=== PATIENT | male | born 1995 | race African-American/Black ===

== ENCOUNTER 2017-01-19 14:39 | Emergency (ER) | payer MEDICAID, OTHER ==
[2017-01-19 14:55] VITALS: BP 151/72
[2017-01-19] MEDS ORDERED: Tetan/Diph/Pertus SYR(Tdap)* 0.5 ML SYR(BOOSTRIX) use SYR IM ONE (16:36)
--- NOTE | 2017-01-19 16:38 | ED ---
Laceration/Wound HPI - HPI Summary HPI Summary: 21M presents with hook in right thumb today. has never had a tetanus. was going fishing and lure was in his bag and he reached back and it got caught in his finger. He is right handed. - History of Current Complaint Stated Complaint: HOOK IN HAND Time Seen by Provider: 01/19/17 15:01 Pain Intensity: 7 - Allergy/Home Medications Allergies/Adverse Reactions: Allergies Allergy/AdvReac Type Severity Reaction Status Date / Time No Known Allergies Allergy Verified 01/19/17 16:03 PMH/Surg Hx/FS Hx/Imm Hx Endocrine/Hematology History: Denies: Hx Diabetes Cardiovascular History: Denies: Hx Hypertension, Hx Pacemaker/ICD History: Denies: Hx Renal Disease Sensory History: Denies: Hx Hearing Aid Psychiatric History: Denies: Hx Panic Disorder - Cancer History Cancer Type, Location and Year: brain tumor/cyst (pt unsure) discovered via ct early 2014. Infectious Disease History: No Infectious Disease History: Denies: Traveled Outside the [place] in Last 30 Days - Family History Known Family History: Negative: Cardiac Disease - Social History Alcohol Use: Rare Substance Use Type: Reports: Marijuana Substance Use Comment - Amount & Last Used: today Smoking Status (MU): Light Every Day Tobacco Smoker Review of Systems Negative: Fever Negative: Chest Pain Negative: Shortness Of Breath Positive: Other - lure in right thumb All Other Systems Reviewed And Are Negative: Yes Physical Exam Triage Information Reviewed: Yes Vital Signs On Initial Exam: Initial Vitals Temp Pulse Resp BP Pulse Ox 97.9 F 59 16 151/72 99 01/19/17 14:53 01/19/17 14:53 01/19/17 14:53 01/19/17 14:53 01/19/17 14:53 Vital Signs Reviewed: Yes Appearance: Positive: Well-Appearing Skin: Positive: Warm, Dry, Other - lure stuck in proximal phalanx of right thumb Head/Face: Positive: Normal Head/Face Inspection Eyes: Positive: Normal, Conjunctiva Clear Respiratory/Lung Sounds: Positive: Clear to Auscultation, Breath Sounds Present Cardiovascular: Positive: Normal, RRR Musculoskeletal: Positive: Strength/ROM Intact - right thumb, Other - good pulses, capillary refill < 2 secs Procedures - Procedure Summary Procedure Summary: removal of fishing lure right thumb performed digital block of right thumb pushed cassandra through skin on other side and cut the cassandra and pulled lure back through and successfully removed the lure. Diagnostics - Vital Signs Vital Signs Temp Pulse Resp BP Pulse Ox 01/19/17 16:00 98 F 59 16 151/72 98 01/19/17 14:53 97.9 F 59 16 151/72 99 - Laboratory Lab Statement: Any lab studies that have been ordered have been reviewed, and results considered in the medical decision making process. Laceration Repair Course/Dx - Course Course Of Treatment: 21M presents with lure in right thumb. he is right hand. never had tetanus so gave him one. cleaned area. successfully removed cassandra from lure and was able to pull it back through and remove lure. told to ice area and watch for signs of infection. patient understands and area with plan - Differential Dx Differental Diagnoses: Laceration, Puncture Wound, Other - lure in finger - Clinical Impression Provider Diagnoses: Foreign body finger Discharge - Discharge Plan Condition: Good Disposition: HOME Referrals: David Miles MD [Primary Care Provider] - Additional Instructions: keep area clean Return to ED if develop any signs of infection such as spreading redness, fever , or pus
== END 2017-01-19 17:28 | disposition home or self-care (01) ==
LOC: ED 14:39
DX: S60.351A Superficial foreign body of right thumb, initial encounter (principal); W45.8XXA Other foreign body or object entering through skin, initial encounter; Y93.89 Activity, other specified; Y92.9 Unspecified place or not applicable
CPT/HCPCS: 90715; 99281

== ENCOUNTER 2017-10-04 13:33 | Emergency (ER) | payer SELFPAY ==
--- NOTE | 2017-10-04 16:15 | ED ---
Influenza-Like Illness - HPI Summary HPI Summary: 22M presents with flu like for past weeks. He admits to nausea and diarrhea for past 2 weeks. He admits to occasional cough. He denies any shortness of breath and admits to occasional sinus congestion. He denies any chest pain. He admits to generalized body aches. He states occasional fevers. No one else is sick. He has no medical conditions. He has not tried anything for his symptoms. - History of Current Complaint Chief Complaint: EDFluSymptoms Time Seen by Provider: 10/04/17 16:12 - Allergy/Home Medications Allergies/Adverse Reactions: Allergies Allergy/AdvReac Type Severity Reaction Status Date / Time No Known Allergies Allergy Verified 01/19/17 16:03 PMH/Surg Hx/FS Hx/Imm Hx Endocrine/Hematology History: Denies: Hx Diabetes Cardiovascular History: Denies: Hx Hypertension, Hx Pacemaker/ICD History: Denies: Hx Renal Disease Sensory History: Denies: Hx Hearing Aid Psychiatric History: Denies: Hx Panic Disorder - Cancer History Cancer Type, Location and Year: brain tumor/cyst (pt unsure) discovered via ct early 2014. Infectious Disease History: No Infectious Disease History: Denies: Traveled Outside the [place] in Last 30 Days - Family History Known Family History: Negative: Cardiac Disease - Social History Alcohol Use: Rare Substance Use Type: Reports: Marijuana Substance Use Comment - Amount & Last Used: today Smoking Status (MU): Light Every Day Tobacco Smoker Review of Systems Positive: Fever Negative: Chest Pain Positive: Cough. Negative: Shortness Of Breath Positive: Vomiting, Diarrhea, Nausea. Negative: Abdominal Pain All Other Systems Reviewed And Are Negative: Yes Physical Exam Triage Information Reviewed: Yes Vital Signs On Initial Exam: Initial Vitals Temp Pulse Resp BP Pulse Ox 98.5 F 60 18 145/87 98 10/04/17 13:47 10/04/17 13:47 10/04/17 13:47 10/04/17 13:47 10/04/17 13:47 Vital Signs Reviewed: Yes Appearance: Positive: Well-Appearing Skin: Positive: Warm, Dry Head/Face: Positive: Normal Head/Face Inspection Eyes: Positive: Normal, EOMI, VILMA, Conjunctiva Clear ENT: Positive: Normal ENT inspection, Pharynx normal Respiratory/Lung Sounds: Positive: Clear to Auscultation, Breath Sounds Present Cardiovascular: Positive: Normal, RRR Abdomen Description: Positive: Nontender, Soft Bowel Sounds: Positive: Present Musculoskeletal: Positive: Normal Neurological: Positive: Normal Psychiatric: Positive: Normal Diagnostics - Vital Signs Vital Signs Temp Pulse Resp BP Pulse Ox 10/04/17 15:25 98.2 F 62 17 148/87 98 10/04/17 13:47 98.5 F 60 18 145/87 98 - Laboratory Lab Results: Lab Results 10/04/17 Range/Units 15:44 Influenza A (Rapid) Negative (Negative) Influenza B (Rapid) Negative (Negative) Lab Statement: Any lab studies that have been ordered have been reviewed, and results considered in the medical decision making process. Flu Symptom Course/Dx - Course Course Of Treatment: 22M presents with flu like for past weeks. He admits to nausea and diarrhea for past 2 weeks. He admits to occasional cough. He denies any shortness of breath and admits to occasional sinus congestion. He denies any chest pain. He admits to generalized body aches. He states occasional fevers. No one else is sick. He has no medical conditions. He has not tried anything for his symptoms. On exam lungs clear to auscultation. Pharynx normal. Flu negative. abdomen soft nontender. Will treat with Zofran for nausea. Patient declined any other medication. Patient understands and agrees the plan. - Diagnoses Differential Diagnosis/HQI/PQRI: Positive: Influenza, Pneumonia, Upper Respiratory Infection Provider Diagnoses: Upper respiratory infection Discharge - Discharge Plan Condition: Good Disposition: HOME Prescriptions: Ondansetron ODT TAB* [Zofran 4 MG Odt TAB*] 4 mg PO Q6H PRN #20 tab.odt PRN Reason: Nausea Patient Education Materials: Upper Respiratory Infection (ED) Referrals: Herve Nava MD [Primary Care Provider] - Additional Instructions: Can take Zofran every 6 hours as needed for nausea Drink small amounts of fluid as tolerated When able to eat follow BRAT diet: Bananas, rice, applesauce, toast Take ibuprofen or Tylenol for pain as needed every 6 hours Follow up with primary within 5 days Return to ED if develop fever that does not respond to Tylenol or ibuprofen, severe abdominal pain, or any new or worsening symptoms
[2017-10-04 16:19] VITALS: BP 145/85
== END 2017-10-04 16:17 | disposition home or self-care (01) ==
LOC: ED 13:33
DX: J06.9 Acute upper respiratory infection, unspecified (principal); Z72.0 Tobacco use
CPT/HCPCS: 87502; 99282

== ENCOUNTER 2017-11-07 12:06 | Emergency (ER) | payer SELFPAY ==
[2017-11-07] MEDS ORDERED: Ondansetron INJ* 2 MG/ML VIAL IV ONE (12:16)
[2017-11-07] MEDS ORDERED: NS 0.9% 1000 ML* 1,000 ML IV ONE (12:16)
[2017-11-07 12:51] LABS: ABS Basophils 0 10^3/ul (0-0.2); ABS Eosinophils 0 10^3/ul (0-0.6); ABS Lymphocytes 0.9 10^3/ul (1.0-4.8); ABS Monocytes 0.6 10^3/ul (0-0.8); ABS Neutrophils 6.1 10^3/ul (1.5-7.7); ABS Nucleated RBC 0 10^3/ul; Eosinophil % 0.1 % (0-6); Hematocrit 44 % (42-52); Hemoglobin 14.9 g/dl (14.0-18.0); Lymphocyte % 12.3 % (25-47); Mean Corpuscular HGB Conc 33 g/dl (31-36); Mean Corpuscular Hemoglobin 30 pg (27-31); Mean Corpuscular Volume 90 fL (80-94); Mean Platelet Volume 10 um3 (7.4-10.4); Nucleated Red Blood Cells % 0.1; Platelet Count 171 10^3/ul (150-450); Red Blood Count 4.92 10^6/ul (4.0-5.4); Red Cell Distribution Width 13 % (10.5-15); White Blood Count 7.7 10^3/ul (3.5-10.8)
[2017-11-07 13:06] LABS: EGFR Non-African American 81.1 (>60)
--- NOTE | 2017-11-07 13:15 | ED ---
GI/ HPI - HPI Summary HPI Summary: 22M presents with generalized abdominal pain for the past couple days. He states he has not had a bowel movement for past 5 days. He admits occasional nausea but denies any vomiting. Denies any diarrhea. He has never had this before. He denies any previous abdominal surgeries. Denies any pain with urination and flank pain. Denies any hematuria. He denies any testicular pain. He hasn't tried anything for her symptoms. Nothing makes it better or worse. - History of Current Complaint Chief Complaint: EDNauseaVomitDiarrh Time Seen by Provider: 11/07/17 12:15 Stated Complaint: VOMITING/DIARRHEA Pain Intensity: 0 - Allergy/Home Medications Allergies/Adverse Reactions: Allergies Allergy/AdvReac Type Severity Reaction Status Date / Time No Known Allergies Allergy Verified 11/07/17 12:14 PMH/Surg Hx/FS Hx/Imm Hx Endocrine/Hematology History: Denies: Hx Diabetes Cardiovascular History: Denies: Hx Hypertension, Hx Pacemaker/ICD History: Denies: Hx Renal Disease Sensory History: Denies: Hx Hearing Aid Psychiatric History: Denies: Hx Panic Disorder - Cancer History Cancer Type, Location and Year: brain tumor/cyst (pt unsure) discovered via ct early 2014. Infectious Disease History: No Infectious Disease History: Denies: Traveled Outside the [place] in Last 30 Days - Family History Known Family History: Negative: Cardiac Disease - Social History Alcohol Use: Rare Substance Use Type: Reports: Marijuana Substance Use Comment - Amount & Last Used: today Smoking Status (MU): Light Every Day Tobacco Smoker Review of Systems Negative: Fever Negative: Chest Pain Negative: Shortness Of Breath Positive: Abdominal Pain, Nausea, Other - diarrhea All Other Systems Reviewed And Are Negative: Yes Physical Exam Triage Information Reviewed: Yes Vital Signs On Initial Exam: Initial Vitals Temp Pulse Resp BP Pulse Ox 98.4 F 64 16 165/84 97 11/07/17 12:07 11/07/17 12:07 11/07/17 12:07 11/07/17 12:07 11/07/17 12:07 Vital Signs Reviewed: Yes Appearance: Positive: Well-Appearing Skin: Positive: Warm, Dry Head/Face: Positive: Normal Head/Face Inspection Eyes: Positive: Normal, Conjunctiva Clear Respiratory/Lung Sounds: Positive: Clear to Auscultation, Breath Sounds Present Cardiovascular: Positive: Normal, RRR Abdomen Description: Positive: Nontender, Soft Bowel Sounds: Positive: Present Musculoskeletal: Positive: Normal Neurological: Positive: Normal Psychiatric: Positive: Normal Diagnostics - Vital Signs Vital Signs Temp Pulse Resp BP Pulse Ox 11/07/17 12:07 98.4 F 64 16 165/84 97 - Laboratory Lab Results: Lab Results 11/07/17 11/07/17 Range/Units 12:31 12:31 WBC 7.7 (3.5-10.8) 10^3/ul RBC 4.92 (4.0-5.4) 10^6/ul Hgb 14.9 (14.0-18.0) g/dl Hct 44 (42-52) % MCV 90 (80-94) fL MCH 30 (27-31) pg MCHC 33 (31-36) g/dl RDW 13 (10.5-15) % Plt Count 171 (150-450) 10^3/ul MPV 10 (7.4-10.4) um3 Neut % (Auto) 79.7 (38-83) % Lymph % (Auto) 12.3 L (25-47) % Emmet % (Auto) 7.5 H (0-7) % Eos % (Auto) 0.1 (0-6) % Baso % (Auto) 0.4 (0-2) % Absolute Neuts (auto) 6.1 (1.5-7.7) 10^3/ul Absolute Lymphs (auto) 0.9 L (1.0-4.8) 10^3/ul Absolute Monos (auto) 0.6 (0-0.8) 10^3/ul Absolute Eos (auto) 0 (0-0.6) 10^3/ul Absolute Basos (auto) 0 (0-0.2) 10^3/ul Absolute Nucleated RBC 0 10^3/ul Nucleated RBC % 0.1 Sodium 136 (133-145) mmol/L Potassium 3.8 (3.5-5.0) mmol/L Chloride 103 (101-111) mmol/L Carbon Dioxide 25 (22-32) mmol/L Anion Gap 8 (2-11) mmol/L BUN 12 (6-24) mg/dL Creatinine 1.13 (0.67-1.17) mg/dL Est GFR ( Amer) 104.4 (>60) Est GFR (Non-Af Amer) 81.1 (>60) BUN/Creatinine Ratio 10.6 (8-20) Glucose 101 H (70-100) mg/dL Calcium 9.8 (8.6-10.3) mg/dL Total Bilirubin 0.50 (0.2-1.0) mg/dL AST 27 (13-39) U/L ALT 22 (7-52) U/L Alkaline Phosphatase 72 (34-104) U/L C-React Prot High Sens 4.27 mg/L Total Protein 7.7 (6.4-8.9) g/dL Albumin 4.6 (3.2-5.2) g/dL Globulin 3.1 (2-4) g/dL Albumin/Globulin Ratio 1.5 (1-3) Lipase 14 (11.0-82.0) U/L Result Diagrams: 11/07/17 12:31 11/07/17 12:31 Lab Statement: Any lab studies that have been ordered have been reviewed, and results considered in the medical decision making process. - Radiology abd Xray Interpretation: No Acute Changes - IMPRESSION: NO EVIDENCE FOR OBSTRUCTION. Radiology Interpretation Completed By: Radiologist GIGU Course/Dx - Course Course Of Treatment: 22M presents with generalized abdominal pain for the past couple days. He states he has not had a bowel movement for past 5 days. He admits occasional nausea but denies any vomiting. Denies any diarrhea. He has never had this before. He denies any previous abdominal surgeries. Denies any pain with urination and flank pain. Denies any hematuria. He denies any testicular pain. He hasn't tried anything for her symptoms. Nothing makes it better or worse. on exam abdomen soft nontender. labs wnl. xray normal. urine neg. will treat constipation with miralax and colace. patient understand and agrees with plan. - Diagnoses Differential Diagnoses - Male: Constipation, Gastroenteritis (Bacterial), Urinary Tract Infection Provider Diagnoses: Abdominal pain, Constipation Discharge - Discharge Plan Condition: Good Disposition: HOME Prescriptions: Docusate CAP* [Colace Cap*] 100 mg PO BID #20 cap Polyethylene Glycol 3350* [Miralax*] 17 gm PO DAILY #10 packet Patient Education Materials: Constipation (ED) Referrals: Herve Nava MD [Primary Care Provider] - Additional Instructions: Take miralax once a day, drink plenty of fluids Take colace twice a day Eat plenty of fiber Take Tylenol every 6 hours as needed for pain Follow up with primary within 5 days Return to ED if develop any new or worsening symptoms
--- NOTE | 2017-11-07 13:39 | RAD ---
INDICATION: No bowel movement for 4 days. COMPARISON: There are no prior studies available for comparison. TECHNIQUE: Supine and upright views of the abdomen were obtained. FINDINGS: The small bowel and colon appear nondistended. No free intraperitoneal air is seen. No significant retained stool is seen. No abnormal calcifications are seen. IMPRESSION: NO EVIDENCE FOR OBSTRUCTION.
[2017-11-07 14:06] VITALS: BP 124/78
[2017-11-07 14:47] LABS: Urine Appearance Cloudy; Urine Blood Negative (Negative); Urine Color Yellow; Urine Ketones 2+ (Negative); Urine Protein 1+(30 mg/dL) (Negative); Urine Specific Gravity 1.035 (1.010-1.030); Urine Urobilinogen Negative (Negative)
== END 2017-11-07 14:05 | disposition home or self-care (01) ==
LOC: ED 12:06
DX: R10.84 Generalized abdominal pain (principal); K59.00 Constipation, unspecified; F17.210 Nicotine dependence, cigarettes, uncomplicated; R11.0 Nausea
CPT/HCPCS: 36415; 74019; 80053; 81003; 81015; 83690; 85025; 86141; 87086; 96374; 99282; J2405